=== PATIENT | female | born 1985 | race Caucasian/White ===

== ENCOUNTER 2018-12-19 08:00 | Inpatient (IN) ==
[2018-12-19] MEDS ORDERED: Naloxone 0.4 MG/ML INJ IVP PRN (09:29)
[2018-12-19] MEDS ORDERED: Metoclopramide 10 MG/2 ML VIAL IVP PRN (09:29)
[2018-12-19] MEDS ORDERED: Famotidine 20 MG/2 ML VIAL IVP PRN (09:29)
[2018-12-19] MEDS ORDERED: Penicillin G Potassium 5,000,000 UNIT in 0.9 % Sodium Chloride Mini Bag 100 ML IVPB ONE (09:30)
[2018-12-19] MEDS ORDERED: Azithromycin 500 MG in 0.9 % Sodium Chloride 250 ML IVPB ONE (09:30)
[2018-12-19] MEDS ORDERED: Ondansetron 4 MG/2 ML VIAL IVP PRN (09:30)
[2018-12-19] MEDS ORDERED: Lidocaine 1% 20 ML MDV INFILT PRN (09:30)
[2018-12-19] MEDS ORDERED: Ringers Solution, Lactated 1,000 ML IVC SCH (09:30)
[2018-12-19 10:41] LABS: Basophils % 0.3 %; Eosinophils % 0.5 %; Hematocrit 39.9 % (35.3-44.9); Hemoglobin 13.7 g/dL (11.5-15.4); Immature Granulocytes % 0.3 % (0-4); Lymphocytes # 0.8 K/mcL (0.6-4.6); Lymphocytes % 12.7 %; Mean Corpuscular HGB Conc 34.3 g/dL (31.6-35.5); Mean Corpuscular Volume 84.4 fL (83.0-100.0); Mean Platelet Volume 12.3 fL (9.4-12.4); Monocytes # 0.5 K/mcL (0.0-1.3); Neutrophils # 5.1 K/mcL (1.6-8.9); Platelet Count 132 K/mcL (140-400); Red Blood Count 4.73 M/mcL (3.82-4.97); Red Cell Distribution Width 13.7 % (11.5-14.5); Segmented Neutrophils % 78.2 %; White Blood Count 6.5 K/mcL (4.3-11.1)
[2018-12-19 10:51] LABS: Amphetamine Screen,Urine Negative ng/mL (Cutoff=1000); Barbiturate Screen,Urine Negative ng/mL (Cutoff=200); Benzodiazepines Screen,Urine Negative ng/mL (Cutoff=200); Cannabinoid Screen,Urine Negative ng/mL (Cutoff = 50); Cocaine Screen,Urine Negative ng/mL (Cutoff= 300); Opiate Screen,Urine Negative ng/mL (Cutoff=300); Phencyclidine Screen,Urine Negative ng/mL (Cutoff=25)
[2018-12-19] MEDS ORDERED: Penicillin G Potassium 2,500,000 UNIT in 0.9 % Sodium Chloride 100 ML IVPB SCH (12:00)
[2018-12-19] MEDS: Oxytocin 20 units/ LR 1000 mL 20 UNIT/1,000 ML BAG IVC ONE ×2 (14:37→21:57)
[2018-12-19] MEDS: *HR* Nalbuphine 10 MG/ML AMPUL IVP PRN ×2 (16:17→17:47)
[2018-12-19] MEDS ORDERED: Oxytocin 20 units/ LR 1000 mL 20 UNIT/1,000 ML BAG IVC ONE (21:53)
[2018-12-19] MEDS ORDERED: Acetaminophen 325 MG TABLET PO PRN (22:54)
[2018-12-19] MEDS ORDERED: Rho Immune Globulin 1,500 UNIT SYRINGE IM PRN (22:54)
[2018-12-19] MEDS ORDERED: Oxytocin 20 units/ LR 1000 mL 20 UNIT/1,000 ML BAG IVC SCH (22:54)
[2018-12-19] MEDS ORDERED: Measles/Mumps/Rubella Vacc 0.5 ML VIAL SQ PRN (22:54)
[2018-12-19] MEDS: Ibuprofen 600 MG TABLET PO PRN (23:18)
[2018-12-20 05:20] LABS: Basophils % 0.2 %; Eosinophils % 0.2 %; Immature Granulocytes % 0.6 % (0-4); Lymphocytes # 1.1 K/mcL (0.6-4.6); Lymphocytes % 9.7 %; Mean Corpuscular HGB Conc 33.4 g/dL (31.6-35.5); Mean Corpuscular Hemoglobin 29.6 pg (28.0-33.3); Mean Corpuscular Volume 88.6 fL (83.0-100.0); Mean Platelet Volume 12.1 fL (9.4-12.4); Monocytes # 0.9 K/mcL (0.0-1.3); Monocytes % 8.1 %; Neutrophils # 8.8 K/mcL (1.6-8.9); Platelet Count 130 K/mcL (140-400); Red Blood Count 3.95 M/mcL (3.82-4.97); Red Cell Distribution Width 13.7 % (11.5-14.5); Segmented Neutrophils % 81.2 %
[2018-12-20 05:21] LABS: Hemoglobin 11.7 g/dL (11.5-15.4); White Blood Count 10.8 K/mcL (4.3-11.1)
[2018-12-20 08:03] VITALS: BP 127/82
[2018-12-20] MEDS: Ibuprofen 600 MG TABLET PO PRN ×2 (08:45→15:03)
[2018-12-20] MEDS ORDERED: Prenatal Vit/FA 1 EACH TABLET PO SCH (09:00)
[2018-12-20] MEDS ORDERED: NON-FORMULARY MEDICATION 1 EACH EACH (Prenatal Vit Calc,Iron,Folic [Prenatal Vitamins] 1 T PO SCH (09:00)
[2018-12-20] MEDS ORDERED: Rho Immune Globulin 1,500 UNIT SYRINGE IM ONE (13:32)
== END 2018-12-20 21:25 | disposition home or self-care (01) | DRG 806 ==
LOC: 1NENULAB 08:02 → 1NENUOBS 22:47
PROVIDERS: ADMIT Obstetrics & Gynecology; ATTEND Obstetrics & Gynecology

== ENCOUNTER 2020-10-04 04:05 | Inpatient (IN) ==
[~2020-10-04 04:05] MED LIST: EPHEDrine 50 MG/ML VIAL IVP PRN; Epidural Premix (fent/bupiv) 110 ML EP SCH; Famotidine 20 MG/2 ML VIAL IVP PRN; Lidocaine 1% 20 ML MDV INFILT PRN; Metoclopramide 10 MG/2 ML VIAL IVP PRN; Naloxone 0.4 MG/ML INJ IVP PRN; Ondansetron 4 MG/2 ML VIAL IVP PRN
[2020-10-04] MEDS ORDERED: Ringers Solution, Lactated 1,000 ML IVC SCH (04:15)
[2020-10-04 04:33] LABS: Basophils % 0.1 %; Eosinophils # 0.1 K/mcL (0.0-0.6); Eosinophils % 0.8 %; Hematocrit 37.2 % (35.3-44.9); Hemoglobin 11.7 g/dL (11.5-15.4); Immature Granulocytes % 0.5 % (0-4); Lymphocytes % 12.9 %; Mean Corpuscular HGB Conc 31.5 g/dL (31.6-35.5); Mean Corpuscular Hemoglobin 25.9 pg (28.0-33.3); Mean Corpuscular Volume 82.5 fL (83.0-100.0); Mean Platelet Volume 11.5 fL (9.4-12.4); Monocytes # 0.8 K/mcL (0.0-1.3); Monocytes % 10.3 %; Neutrophils # 5.8 K/mcL (1.6-8.9); Platelet Count 112 K/mcL (140-400); Red Blood Count 4.51 M/mcL (3.82-4.97); Red Cell Distribution Width 15.9 % (11.5-14.5); Segmented Neutrophils % 75.4 %; White Blood Count 7.7 K/mcL (4.3-11.1)
[2020-10-04 05:45] LABS: Influenza A PCR Negative (Negative); Influenza B PCR Negative (Negative); Resp. Syncytial Virus PCR Negative (Negative)
[2020-10-04 05:52] LABS: SARS-CoV-2 by PCR (In House) Negative (Negative)
[2020-10-04] MEDS: *HR* Nalbuphine 10 MG/ML AMPUL IV PRN ×2 (06:59→10:03)
[2020-10-04] MEDS ORDERED: Oxytocin 20 units/ LR 1000 mL 20 UNIT/1,000 ML BAG IVC SCH ×2 (11:00→14:36)
[2020-10-04] MEDS ORDERED: Measles/Mumps/Rubella Vacc 0.5 ML VIAL SQ PRN (14:36)
[2020-10-04] MEDS ORDERED: Rho Immune Globulin 1,500 UNIT SYRINGE IM PRN (14:36)
[2020-10-04] MEDS: Acetaminophen 325 MG TABLET PO SCH ×2 (17:08→23:31)
[2020-10-04] MEDS: Ibuprofen 600 MG TABLET PO SCH ×2 (17:09→23:31)
[2020-10-05 02:26] VITALS: O2SAT 96
[2020-10-05] MEDS: Acetaminophen 325 MG TABLET PO SCH (05:50)
[2020-10-05] MEDS: Ibuprofen 600 MG TABLET PO SCH (05:50)
[2020-10-05] MEDS ORDERED: Prenatal Vit/FA 1 EACH TABLET PO SCH (09:00)
[2020-10-05 09:47] VITALS: BP 114/74; PULSE 89; TEMP 97.7
== END 2020-10-05 15:30 | disposition home or self-care (01) | DRG 807 ==
LOC: 1NENULAB → 1NENUOBS 14:22
PROVIDERS: ADMIT Obstetrics & Gynecology; ATTEND Obstetrics & Gynecology